=== PATIENT | female | born 1980 | race African-American/Black ===

== ENCOUNTER 2016-12-24 15:20 | Emergency (ER) | payer OTHER ==
[~2016-12-24] VITALS: Ht 162.6 cm; Wt 80.0 kg
[~2016-12-24 15:20] MED LIST: MOTRIN
[2016-12-24 15:41] VITALS: BP 148/63
== END 2016-12-24 18:32 | disposition left against medical advice (07) ==
LOC: EMS 15:24
DX: M25.532 Pain in left wrist (principal); M25.432 Effusion, left wrist; Z53.21 Procedure and treatment not carried out due to patient leaving prior to being seen by health care provider